=== PATIENT | female | born 1985 | race Caucasian/White ===

== ENCOUNTER 2016-10-25 02:49 | Inpatient (IN) | payer OTHER ==
[2016-10-25] MEDS ORDERED: SODIUM CHLORIDE FLUSH 0.9% 10 ML SYRINGE IVP ONE (03:00)
[2016-10-25] MEDS ORDERED: ONDANSETRON 4 MG/2 ML VIAL IVP PRN (03:18)
[2016-10-25] MEDS ORDERED: PENICILLIN G POTASSIUM 5,000,000 UNIT in SODIUM CHLORIDE 0.9% MINIBAG 100 ML IV ONE (03:18)
[2016-10-25] MEDS ORDERED: fentaNYL 100 MCG/2 ML VIAL IVP PRN (03:18)
[2016-10-25] MEDS: SODIUM CHLORIDE FLUSH 0.9% 10 ML SYRINGE IVP PRN ×3 (03:23→10:28)
[2016-10-25] MEDS ORDERED: OXYTOCIN/LACTATED RINGERS 250 ML IV SCH (04:00)
[2016-10-25] MEDS ORDERED: LACTATED RINGERS 1,000 ML IV SCH ×3 (04:00→06:00)
[2016-10-25] MEDS ORDERED: PENICILLIN G POTASSIUM 5,000,000 UNIT in SODIUM CHLORIDE 0.9% MINIBAG 100 ML IV SCH (04:08)
[2016-10-25] MEDS ORDERED: LIDOCAINE 1% 50 ML MDV ONE (04:24)
[2016-10-25] MEDS ORDERED: LIDOCAINE JELLY 2% 5 ML TUBE TOP ONE (04:44)
[2016-10-25] MEDS ORDERED: OXYTOCIN/LACTATED RINGERS 250 ML IV ONE ×2 (05:24→05:46)
[2016-10-25] MEDS ORDERED: WITCH HAZEL/GLYCERIN 1 EACH MED..PAD TOP PRN ×2 (05:24→05:46)
[2016-10-25] MEDS ORDERED: HYDROcod/ACETAM 5/325 MG TABLET PO PRN ×2 (05:24→05:46)
[2016-10-25] MEDS ORDERED: HYDROCORTISONE/PRAMOXINE 10 GM PR PRN ×2 (05:24→05:46)
[2016-10-25] MEDS ORDERED: diphenhydrAMINE 25 MG CAPSULE PO PRN (05:24)
[2016-10-25] MEDS ORDERED: RHO(D) IMMUNE GLOBULIN 300 MCG SYRINGE IM SCH (05:46)
[2016-10-25] MEDS ORDERED: SODIUM CHLORIDE FLUSH 0.9% 10 ML SYRINGE IVP SCH (06:00)
[2016-10-25] MEDS ORDERED: IBUPROFEN 800 MG TABLET PO SCH (06:00)
[2016-10-25] MEDS: IBUPROFEN 600 MG TABLET PO SCH ×3 (06:41→18:46)
[2016-10-25] MEDS ORDERED: PENICILLIN G POTASSIUM 2,500,000 UNIT in SODIUM CHLORIDE 0.9% 100ML 100 ML IV SCH (08:00)
[2016-10-25] MEDS: DOCUSATE SODIUM 100 MG CAPSULE PO SCH ×2 (12:31→22:30)
[2016-10-26] MEDS: IBUPROFEN 600 MG TABLET PO SCH ×4 (00:53→18:32)
[2016-10-26] MEDS ORDERED: RHO(D) IMMUNE GLOBULIN 300 MCG SYRINGE IM SCH (10:00)
[2016-10-26] MEDS: DOCUSATE SODIUM 100 MG CAPSULE PO SCH (12:51)
== END 2016-10-26 19:00 | disposition home or self-care (01) | DRG 775 ==
PROC: 0KQM0ZZ Repair Perineum Muscle, Open Approach (ICD-10-PCS; principal; 2016-10-25)
PROC: 10D07Z6 Extraction of Products of Conception, Vacuum, Via Natural or Artificial Opening (ICD-10-PCS; 2016-10-25)
DX: O70.1 Second degree perineal laceration during delivery (principal); Z37.0 Single live birth; Z3A.40 40 weeks gestation of pregnancy; Z87.820 Personal history of traumatic brain injury; Z95.818 Presence of other cardiac implants and grafts; O99.824 Streptococcus B carrier state complicating childbirth

== ENCOUNTER 2017-04-06 01:09 | Emergency (ER) | payer OTHER ==
[2017-04-06 01:28] LABS: BILIRUBIN,URINE NEGATIVE (NEGATIVE); PH,URINE 6.5 PH (5.0-7.5)
[2017-04-06 01:40] LABS: HCG UR QUAL NEGATIVE; UA w/ MICROSCOPIC CHARGE YES; UR CULTURE IF IND INDICATED
[2017-04-06] MEDS ORDERED: PHENAZOPYRIDINE 100 MG TABLET PO STA (01:48)
[2017-04-06] MEDS ORDERED: NITROFURANTOIN MACRO 100 MG CAPSULE PO STA (01:48)
--- NOTE | 2017-04-06 01:52 | ED Physician Documentation ---
PD HPI FEMALE - Stated complaint Stated Complaint: FEMALE - Chief complaint Chief Complaint: UTI - History obtained from History obtained from: Patient - History of Present Illness Timing - onset: Yesterday Timing - details: Gradual onset, Still present Associated symptoms: Pelvic pain, Dysuria, Urinary frequency, Hematuria Similar symptoms before: Work up / diagnostics Recently seen: Not recently seen - Additional information Additional information: Patient is a 32 year old female who is presenting to the emergency department for dysuria, hematuria and not feeling well. patient states that the symptoms started yesterday and have become progressively worse. Review of Systems Constitutional: reports: Fever. denies: Chills Eyes: denies: Loss of vision, Photophobia Ears: denies: Ear pain, Drainage/discharge Nose: denies: Rhinorrhea / runny nose, Congestion Throat: denies: Dental pain / toothache, Sore throat Cardiac: denies: Chest pain / pressure, Palpitations Respiratory: denies: Cough GI: denies: Abdominal Pain, Nausea, Vomiting : reports: Dysuria, Frequency, Hematuria Skin: denies: Rash, Lesions Musculoskeletal: reports: Back pain. denies: Neck pain, Extremity pain Neurologic: denies: Generalized weakness, Focal weakness, Numbness Immunocompromised: denies: Immunocompromised PD PAST MEDICAL HISTORY - Past Medical History Past Medical History: No - Past Surgical History Past Surgical History: Yes HEENT: Tonsil/Adenoidectomy - Present Medications Home Medications: Ambulatory Orders Medication Instructions Recorded Confirmed Nitrofurantoin Monohyd/M-Cryst 100 mg PO BID 5 Days 04/06/17 [Macrobid 100 mg Capsule] Phenazopyridine HCl [Pyridium] 200 mg PO TID PRN #6 tablet 04/06/17 Pnv95/Ferrous Fumarate/FA 1 each PO DAILY 04/06/17 04/06/17 [ Formula] - Allergies Allergies/Adverse Reactions: Allergies Allergy/AdvReac Type Severity Reaction Status Date / Time General Anesthia Allergy Unknown Uncoded 04/06/17 01:22 - Social History Does the pt smoke?: No Smoking Status: Never smoker Does the pt drink ETOH?: Yes ETOH Use: Wine Does the pt have substance abuse?: No - Immunizations Immunizations are current?: Yes - POLST Patient has POLST: No PD ED PE NORMAL - Vitals Vital signs reviewed: Yes - General General: Alert and oriented X 3, Well developed/nourished - HEENT HEENT: Atraumatic, PERRL - Neck Neck: Supple, no meningeal sign, No JVD - Cardiac Cardiac: RRR, No murmur - Respiratory Respiratory: No respiratory distress, Clear bilaterally - Abdomen Abdomen: Non distended - Back Back: No CVA TTP - Derm Derm: Normal color, Warm and dry, No rash - Extremities Extremities: No deformity, No edema - Neuro Neuro: Alert and oriented X 3, No motor deficit, No sensory deficit, Normal speech - Psych Psych: Normal mood, Normal affect PD ED PE EXPANDED - Abdomen Abdomen: Tender to palpation, Suprapubic Results - Vitals Vitals: Vital Signs - 24 hr 04/06/17 01:15 Temperature 36.6 C Heart Rate 70 Respiratory 17 Rate Blood Pressure 119/87 H O2 Saturation 99 Oxygen O2 Source Room air - Labs Labs: Laboratory Tests 04/06/17 01:22 Urine Color LT RED Urine Clarity BLOODY Urine pH 6.5 Ur Specific [place] 1.020 Urine Protein 30 H Urine Glucose (UA) NEGATIVE Urine Ketones NEGATIVE Urine Occult Blood LARGE H Urine Nitrite NEGATIVE Urine Bilirubin NEGATIVE Urine Urobilinogen 0.2 (NORMAL) Ur Leukocyte Esterase MODERATE H Urine RBC TNTC H Urine WBC 4-5 Ur Epithelial Cells RARE Renal Tubular Ur Squamous Epith Cells RARE Squamous Urine Bacteria None Seen Ur Microscopic Review INDICATED Urine Culture Comments INDICATED Urine HCG, Qual NEGATIVE PD MEDICAL DECISION MAKING - ED course Complexity details: reviewed old records, reviewed results, re-evaluated patient , considered differential, d/w patient ED course: Patient was seen and examined at bedside. Urine was collected and sent. Patient was found to have cystitis. Patient was treated with macrobid and pyridium. patient required no further work up and was stable for discharge with outpatient follow up. Departure - Departure Disposition: 01 Home, Self Care Clinical Impression: Cystitis Condition: Good Instructions: ED UTI Cystitis Female Follow-Up: primary,care provider [Other] - As Needed Prescriptions: Nitrofurantoin Monohyd/M-Cryst [Macrobid 100 mg Capsule] 100 mg PO BID 5 Days Phenazopyridine HCl [Pyridium] 200 mg PO TID PRN #6 tablet PRN Reason: dysuria Comments: Your symptoms today are being caused by a urinary tract infection. You will have your first dose of antibiotics tonight and will need to take them for the next five days. You can take motrin or tylenol as needed for pain. You should drink plenty of water. You should follow up with your symptoms persist. You may return to the emergency department at any time for new, worsening or uncontrollable symptoms.
[2017-04-06] MEDS ORDERED: PHENAZOPYRIDINE 100 MG TABLET PO ONE (01:57)
[2017-04-06] MEDS ORDERED: NITROFURANTOIN MACRO 100 MG CAPSULE PO ONE (01:57)
[2017-04-06 02:00] VITALS: BP 118/68
== END 2017-04-06 02:00 | disposition home or self-care (01) ==
LOC: ED 01:09
DX: N30.01 Acute cystitis with hematuria (principal)
CPT/HCPCS: 81001; 81025; 87077; 87086; 87181; 99283; A9270; 81003

== ENCOUNTER 2017-10-22 20:41 | Emergency (ER) | payer OTHER ==
[2017-10-22 21:04] LABS: BILIRUBIN,URINE NEGATIVE (NEGATIVE); GLUCOSE, URINE (UA) NEGATIVE (NEGATIVE); KETONES,URINE (UA) 15 mg/dL (NEGATIVE); LEUKOCYTE ESTERASE, URINE NEGATIVE (NEGATIVE); NITRITE,URINE NEGATIVE (NEGATIVE); OCCULT BLOOD,URINE NEGATIVE (NEGATIVE); PH,URINE 5.5 PH (5.0-7.5); PROTEIN,URINE NEGATIVE (NEGATIVE); UROBILINOGEN,URINE 0.2 (NORMAL) E.U./dL (NORMAL)
[2017-10-22 21:06] LABS: CLARITY,URINE CLEAR (CLEAR); HCG UR QUAL POSITIVE
--- NOTE | 2017-10-22 21:07 | ED Physician Documentation ---
PD HPI NVD - Stated complaint Stated Complaint: VOMTING/8WKS PREG - Chief complaint Chief Complaint: Abd Pain - History obtained from History obtained from: Patient - History of Present Illness Timing - onset: Enter time (20:00), Today Timing - details: Abrupt onset Pain level max: 8 Pain level now: 0 Associated symptoms: Abdominal pain. No: Fever, Hematemesis, Hematuria, Vaginal bleeding, Vaginal dc Improved by: Other (no ameliorating factors) Worsened by: Eating Similar symptoms before: Has not had sx before Recently seen: Not recently seen - Additonal information Additional information: patient is approximately 8 weeks . she has not had an US in this . This is her second , no problems with first . Presents due to 24 hours of nausea, vomiting, diarrhea, and cramping across her pelvis and lower abdomen. symptoms have gradually progressed and she can no longer keep anything down including liquids. She denies nausea or pain at the time of HPI; she says she will suddenly become nauseas and then vomit and have cramping pain but is well between these waves Review of Systems Constitutional: denies: Fever, Chills, Sweats Cardiac: reports: Reviewed and negative Respiratory: reports: Reviewed and negative GI: reports: Nausea, Vomiting, Diarrhea. denies: Abdominal Pain, Abdominal Swelling, Hematemesis, Bloody / black stool : denies: Dysuria, Frequency Musculoskeletal: denies: Back pain PD PAST MEDICAL HISTORY - Past Medical History Past Medical History: No - Past Surgical History Past Surgical History: Yes HEENT: Tonsil/Adenoidectomy - Present Medications Home Medications: Ambulatory Orders Medication Instructions Recorded Confirmed Pnv95/Ferrous Fumarate/FA 1 each PO DAILY 04/06/17 10/22/17 [ Formula] - Allergies Allergies/Adverse Reactions: Allergies Allergy/AdvReac Type Severity Reaction Status Date / Time General Anesthia Allergy Unknown Uncoded 10/22/17 20:53 - Social History Does the pt smoke?: No Smoking Status: Never smoker Does the pt drink ETOH?: No Does the pt have substance abuse?: No - Immunizations Immunizations are current?: Yes - POLST Patient has POLST: No PD ED PE NORMAL - Vitals Vital signs reviewed: Yes - General General: Alert and oriented X 3, No acute distress, Well developed/nourished - HEENT HEENT: Other (tacky/pasty mucous [place]) - Neck Neck: Supple, no meningeal sign - Cardiac Cardiac: RRR, No murmur - Respiratory Respiratory: No respiratory distress, Clear bilaterally - Abdomen Abdomen: Soft, Non tender, Non distended, Other (mild tenderness to palpation across lower abdomen and anterior pelvis, L>R. no rebound or guarding) - Back Back: No CVA TTP - Derm Derm: Normal color, Warm and dry Results - Vitals Vitals: Vital Signs - 24 hr 10/22/17 10/23/17 20:48 00:16 Temperature 36.7 C Heart Rate 85 78 Respiratory 16 16 Rate Blood Pressure 119/72 110/75 O2 Saturation 100 99 Oxygen O2 Source Ambu bag - Labs Labs: Laboratory Tests 10/22/17 10/22/17 10/22/17 21:01 21:30 21:30 WBC 6.8 RBC 4.77 Hgb 12.3 Hct 38.1 MCV 80.0 L MCH 25.7 L MCHC 32.1 RDW 15.0 Plt Count 281 MPV 8.4 Neut # 5.6 Lymph # 0.8 L [place] # 0.4 Eos # 0.0 Baso # 0.0 Absolute Nucleated RBC 0.00 Nucleated RBC % 0.0 Sodium 134 L Potassium 3.6 Chloride 105 Carbon Dioxide 21 Anion Gap 8.0 BUN 7 Creatinine 0.7 Estimated GFR (MDRD) 98 Glucose 89 Calcium 8.8 Total Bilirubin 0.2 AST 26 ALT 15 Alkaline Phosphatase 59 Total Protein 6.9 Albumin 4.1 Globulin 2.8 Albumin/Globulin Ratio 1.5 Lipase 11 L HCG, Quant Urine Color YELLOW Urine Clarity CLEAR Urine pH 5.5 Ur Specific [place] 1.015 Urine Protein NEGATIVE Urine Glucose (UA) NEGATIVE Urine Ketones 15 H Urine Occult Blood NEGATIVE Urine Nitrite NEGATIVE Urine Bilirubin NEGATIVE Urine Urobilinogen 0.2 (NORMAL) Ur Leukocyte Esterase NEGATIVE Ur Microscopic Review NOT INDICATED Urine Culture Comments NOT INDICATED Urine HCG, Qual POSITIVE 10/22/17 21:30 WBC RBC Hgb Hct MCV MCH MCHC RDW Plt Count MPV Neut # Lymph # [place] # Eos # Baso # Absolute Nucleated RBC Nucleated RBC % Sodium Potassium Chloride Carbon Dioxide Anion Gap BUN Creatinine Estimated GFR (MDRD) Glucose Calcium Total Bilirubin AST ALT Alkaline Phosphatase Total Protein Albumin Globulin Albumin/Globulin Ratio Lipase HCG, Quant 567293.00 Urine Color Urine Clarity Urine pH Ur Specific [place] Urine Protein Urine Glucose (UA) Urine Ketones Urine Occult Blood Urine Nitrite Urine Bilirubin Urine Urobilinogen Ur Leukocyte Esterase Ur Microscopic Review Urine Culture Comments Urine HCG, Qual - Rads (name of study) pelvic/TV US Radiology: Prelim report reviewed, See rad report PD MEDICAL DECISION MAKING - ED course Complexity details: reviewed results, re-evaluated patient, considered differential, d/w patient Departure - Departure Disposition: 01 Home, Self Care Clinical Impression: Threatened , Abdominal pain Condition: Good Instructions: ED Abdominal Pain Unkn Cause, ED Miscarriage Poss Follow-Up: KIRSTEN Talbert [Provider Group] Discharge Date/Time: 10/23/17 00:17
[2017-10-22] MEDS ORDERED: SODIUM CHLORIDE 0.9% 1,000 ML IV STA (21:25)
[2017-10-22 21:40] LABS: BASOPHILS % (AUTO) 0.4 %; EOSINOPHILS % (AUTO) 0.3 %; HGB - HEMOGLOBIN 12.3 g/dL (12.0-16.0); LYMPHOCYTES # (AUTO) 0.8 10^3/uL (1.5-3.5); LYMPHOCYTES % (AUTO) 11.4 %; MEAN CORPUSCULAR HEMOGLOBIN 25.7 pg (27.0-31.0); MEAN CORPUSCULAR HGB CONC 32.1 g/dL (32.0-36.0); MEAN PLATELET VOLUME 8.4 fL (7.9-10.8); MONOCYTES # (AUTO) 0.4 10^3/uL (0.0-1.0); MONOCYTES % (AUTO) 6.2 %; NEUTROPHILS # (AUTO) 5.6 10^3/uL (1.5-6.6); NEUTROPHILS % (AUTO) 81.7 %; PLT - PLATELET COUNT 281 10^3/uL (130-450); RED BLOOD COUNT 4.77 10^6/uL (4.20-5.40); WHITE BLOOD COUNT 6.8 x10^3/uL (4.8-10.8)
[2017-10-22 21:48] LABS: ALBUMIN 4.1 g/dL (3.2-5.5); ALBUMIN/GLOBULIN RATIO 1.5 (1.0-2.2); BILIRUBIN,TOTAL 0.2 mg/dL (0.2-1.0); CALCIUM 8.8 mg/dL (8.5-10.3); CREATININE 0.7 mg/dL (0.4-1.0); TOTAL PROTEIN 6.9 g/dL (6.7-8.2)
--- NOTE | 2017-10-22 23:17 | Ultrasound Report ---
EXAM: FIRST TRIMESTER OBSTETRIC ULTRASOUND (Less than 11 weeks) EXAM DATE: 10/22/2017 10:54 PM. CLINICAL HISTORY: , pelvic pain. LMP: 08/26/2017. COMPARISONS: None. TECHNIQUE: Transabdominal and transvaginal ultrasound examination with static image documentation. CLINICAL DATES: EGA 8 weeks 1 day with JOSELUIS 06/02/2018 based on LMP. ASSESSMENT: Gestational Sac: Single intrauterine. Mean gestational sac diameter: 29 mm = 8 weeks 0 days. Embryo: CRL (crown-rump length) 13 mm = 7 weeks 4 days. Cardiac activity: 193 beats per minute. Yolk sac: 4 mm. Amniotic fluid: Not accurately assessed at this gestational age. Early placenta: Not visible at this gestational age. Other: Collection adjacent to the gestational sac measuring 13 x 22 mm. MATERNAL STRUCTURES: Uterus: Neutral position. Unremarkable. Cervix: Closed. Right Ovary/Adnexa: Is luteum measuring 2.3 x 1.9 x 2.0 cm. The ovary measures 3.4 x 2.7 x 3.3 cm, v olume 16 cc. Left Ovary/Adnexa: Unremarkable. The ovary measures 2.9 x 1.3 x 2.5 cm, volume 4.8 cc. Free Fluid: None. Other: None. IMPRESSION: 1. Single viable intrauterine at EGA 7 weeks 4 days with JOSELUIS 06/06/2018 based on crown-rump length, which is concordant with clinical dates. 2. Assigned dating is JOSELUIS 06/02/2018 based on LMP. 3. Probable hemorrhage adjacent to the sac measuring 13 x 22 mm. [facility] Referring Provider Line: [phone] SITE ID: [id number]
--- NOTE | 2017-10-22 23:17 | Ultrasound Preliminary Report ---
Exam: US OB FIRST TRIMESTER IMPRESSION: 1. Single viable intrauterine at EGA 7 weeks 4 days with JOSELUIS 06/06/2018 based on crown-rump length, which is concordant with clinical dates. 2. Assigned dating is JOSELUIS 06/02/2018 based on LMP. 3. Probable hemorrhage adjacent to the sac measuring 13 x 22 mm. [facility] SITE ID: [id number]
[2017-10-22] MEDS ORDERED: ACETAMINOPHEN 325 MG TABLET PO STA (23:41)
[2017-10-23 00:17] VITALS: BP 110/75
== END 2017-10-23 00:17 | disposition home or self-care (01) ==
LOC: ED 20:41
DX: O20.0 Threatened abortion (principal); Z3A.08 8 weeks gestation of pregnancy
CPT/HCPCS: 76801; 76817; 80053; 81003; 81025; 83690; 84702; 85025; 96360; 99283; A9270; 36415; 81001; 87086

== ENCOUNTER 2018-06-05 12:00 | Inpatient (IN) | payer OTHER ==
[2018-06-05] MEDS ORDERED: OXYTOCIN 10 UNIT/ML VIAL IM ONE (12:15)
[2018-06-05] MEDS ORDERED: LIDOCAINE 1% 50 ML MDV TD ONE (12:15)
[2018-06-05] MEDS ORDERED: OXYTOCIN/SODIUM CHLORIDE 250 ML IV ONE (12:37)
[2018-06-05] MEDS ORDERED: WITCH HAZEL/GLYCERIN 1 EACH MED..PAD TOP PRN (12:37)
--- NOTE | 2018-06-05 12:58 | DELIVERY NOTE ---
Delivery Note - Labor Labor: positive: Spontaneous - Delivery Method Delivery Method: positive: Spontaneous vaginal delivery - Presentation Presentation: positive: Vertex, JAMES - right occiput anterior - Nuchal Cord Nuchal Cord: positive: None - Anesthetic Anesthetic: positive: Lidocaine - 1% plain - Amniotic Fluid Description Amniotic Fluid Description: positive: Clear - Episiotomy Type Episiotomy Type: positive: None - Laceration Laceration: positive: 1st degree - Suture Suture Type: positive: Vicryl Suture Size: positive: 3-0 - Delivery Outcome Delivery Outcome: positive: Livebirth - : positive: Placed in direct skin contact with mother, Stimulated, Warme d, Bledsoe used [place] sex: positive: Female - Cord Cord: positive: 3 vessels - Placenta Placenta: positive: Intact, Spontaneous - Estimated Blood Loss Estimated Blood Loss (in cc): 250 - Post Delivery Events Post Delivery Events: positive: No post delivery events - Delivery Comments (Free Text/Narrative) Delivery Comments (Free Text/Narrative): This 33yo @ 40.3 wks gestation whom is a patient at the [facility] who presented on 06/05/2018 at 1200 in active labor with visible head on perineum and spontaneous urge to push. FHR auscultation in 140s. Precipitous labor course. Per patient intermittent, moderate uterine contractions began 12 hours ago and occurred q 20 minutes. SROM occurred at 1130 on 06/05/2018 and was noted to be a moderate amount of clear fluid followed by rapid increase in frequency, duration, and intensity of uterine contractions. Patient presented to [facility] at 1200 and was transferred via wheelchair to [facility] at 1202. Normal of a viable female on 06/05/2018 at 1204 in JAMES position. No nuchal cord. 's were 9/9 at 1 and 5 min respectively. The was placed on maternal abdomen, stimulated, dried, and placed skin to skin. The umbilical cord was allowed to stop pulsating at which time it was doubly clamped by CNM and cut by FOB. Cord blood was obtained. Placenta delivered spontaneously and intact at 1209. 3VC. Pitocin administered via IM for hemostasis. EBL 250mL. Fourth Stage: Uterine fundus firm and there is no excessive bleeding. The perineum, vagina, and cervix were inspected and found to have first degree perineal laceration which was repaired using a 3-[address]-1 needle in standard fashion under sterile conditions. Vaginal examination following repair was completed and tissues well approximated. initiated. Family bonding well. Both mother and baby were left in stable condition.
[2018-06-05 13:09] LABS: BASOPHILS % (AUTO) 0.1 %; EOSINOPHILS % (AUTO) 0.1 %; HGB - HEMOGLOBIN 10.5 g/dL (12.0-16.0); LYMPHOCYTES # (AUTO) 0.9 10^3/uL (1.5-3.5); LYMPHOCYTES % (AUTO) 5.8 %; MEAN CORPUSCULAR HEMOGLOBIN 26.1 pg (27.0-31.0); MEAN CORPUSCULAR HGB CONC 33.4 g/dL (32.0-36.0); MEAN PLATELET VOLUME 8.7 fL (7.9-10.8); MONOCYTES # (AUTO) 0.4 10^3/uL (0.0-1.0); MONOCYTES % (AUTO) 2.4 %; NEUTROPHILS # (AUTO) 14.1 10^3/uL (1.5-6.6); NEUTROPHILS % (AUTO) 91.6 %; PLT - PLATELET COUNT 339 10^3/uL (130-450); RED BLOOD COUNT 4.04 10^6/uL (4.20-5.40); RED CELL DISTRIBUTION WIDTH 13.6 % (12.0-15.0); WHITE BLOOD COUNT 15.4 x10^3/uL (4.8-10.8)
[2018-06-05] MEDS: ACETAMINOPHEN 500 MG TABLET PO SCH ×2 (13:34→21:40)
[2018-06-05] MEDS: IBUPROFEN 800 MG TABLET PO SCH ×2 (13:34→20:03)
--- NOTE | 2018-06-05 18:02 | HISTORY & PHYSICAL EXAMINATION ---
Admit History - Visit Reason Visit Reason: Contractions, Membranes rupture - : 2 Parity: 1 Premature: 0 Ectopic: 0 : 0 Care: positive: George Risk/History: positive: None Complications This : positive: None Smoking Status: Never smoker - Mother's Labs Mother's Blood Type: positive: O Mother's RH: positive: Negative GBS: positive: Group B Strep Positive Rubella Status: positive: Immune Meds/Allgy - Home Medications Home Medications: Ambulatory Orders Medication Instructions Recorded Confirmed Pnv95/Ferrous Fumarate/FA 1 each PO DAILY 04/06/17 10/22/17 [ Formula] - Allergies Allergies/Adverse Reactions: Allergies Allergy/AdvReac Type Severity Reaction Status Date / Time blueberries Allergy Hives Uncoded 06/05/18 14:52 dogs cats Allergy Itching Uncoded 06/05/18 14:53 General Anesthia Allergy Unknown Uncoded 10/22/17 20:53 pineapple Allergy Hives Uncoded 06/05/18 14:53 Review of Systems - Constitutional Constitutional: denies: Fever, Chills - Eyes Eyes: denies: Blurred vision, Vision loss, Dipolpia - Cardiovascular Cariovascular: denies: Irregular heart rate, Palpitations, Chest pain - Gastrointestinal Gastrointestinal: denies: Abdominal pain, Constipation, Diarrhea - Genitourinary Genitourinary: denies: Dysuria, Frequency, Urgency - Hematologic/Lymphatic Hematologic/Lymphatic: reports: Anemia Physical - Abdominal Exam Vital Signs: Temp Pulse Resp BP Pulse Ox 36.7 C 72 18 117/99 H 99 06/05/18 16:48 06/05/18 16:48 06/05/18 16:48 06/05/18 16:48 06/05/18 16:48 Contraction Intensity: positive: Strong Uterine Resting Tone: positive: Soft - Monitoring Heart Rate Baseline: 140s Strip Review: positive: Category I - Presentation Presentation: positive: Vertex - Vaginal Exam Membranes: positive: Membranes ruptured Dilation (in cm): 10 Effacement (%): 100 Station: positive: - Speculum Exam Speculum Exam Performed: positive: No Plan for Labor - Plan For Labor I expect patient to be DC'd or transferred within 96 hours.: Yes Plan for Labor: HPI: 33yo @ 40.3wks gestation [facility] with frequent and intense uterine contractions and spontaneous urge to push. She reports SROM a moderate amount of clear fluid at 1130 on 06/05/2018. She is a patient of KIRSTEN Elizabeth who presented to [facility] secondary to [facility] divert status. Dating criteria: LMP 08/26/2017 = JOSELUIS 06/02/2018 PMHx: Kidney stone 2010 Migraines 2016 Abnormal pap 2016 - LEEP 2015; pap reverted to normal Ovarian cysts 2006 Neurocardiogenic syncope - had workup. Loop monitor implant [id number]. Could not find cause. Has not had any since third trimester of first late 2017/early 2016 Obstetric Hx: G1: 10/25/2016 vaginal delivery at 40 weeks. 4 hour labor. 3515g G2: Current Surgical Hx: LEEP 2016 Cardiac loop monitor implant 2010-removal 2013 Arthroscopy of knee 2007 Tonsillectomy 1992 Allergies: Dust; dogs; cats; pineapple; blueberry ANESTHETIC - reaction vomiting. Medications: Ferrous sulfate 324mg; PNV Social Hx: Never smoker. No ETOH or IVDA. 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 Family Hx: GENETIC FAMILY HX of cystic fibrosis - Mother of baby's paternal aunt HTN- MGM Cancer- PGM labs: Blood type: O neg - Rhogam received 03/22/18 Antibody negative GC/CT neg Hgb 12.6; Hct 38.4; PLT 303 Varicella immune Rubella immune RPR non-reactive HIV non-reactive Hep B neg Hep C neg 28 week labs: 1 hour GTT 104 Hgb 11.4; Hct 34.5; PLT 291 Antibody High risk HPV neg; Type 16 & 18 neg Genetic testing: Serum integrated screen - neg GBS POSITIVE Immunizations: Rhogam 03/22/18 Tdap 05/02/18 Physical Exam: Heart RRR w/o M/G/R Lungs CTAB Abdomen gravid, soft, nontender with soft resting tone Contractions palpate firm SVE deferred secondary to Breathing heavily through contractions. Assessment: 33yo @ 40.3wks gestation Active labor Precipitous labor GBS positive Rh negative Plan: Admit for expectant management Anticipate spontaneous vaginal delivery
[2018-06-05] MEDS: DOCUSATE SODIUM 100 MG CAPSULE PO SCH (21:26)
[2018-06-06] MEDS: IBUPROFEN 800 MG TABLET PO SCH ×2 (03:46→09:34)
[2018-06-06] MEDS: ACETAMINOPHEN 500 MG TABLET PO SCH (05:32)
--- NOTE | 2018-06-06 08:57 | PROVIDER PROGRESS NOTE ---
Subjective - Subjective Subjective: S: Bonding well with baby. without difficulty. Pain well controlled with ibuprofen and Tylenol. Bleeding decreased and is light. Perineum comfortable and denies pain or difficulty with urination. Mood is good. supportive at the bedside. O: BP 121/73, HR 71, RR 16, T 37.0 Heart RRR w/o M/G/R, lungs CTAB, abdomen soft and nontender with fundus firm at U-3. Perineum comfortable and repair without edema. Light lochia rubra. Bilateral LE's no edema. Mood is good. A: 33yo -->P2 s/p TSVD of viable female infant First degree perineal laceration -intact GBS positive -untreated P: Reviewed self care and warning s/sx. Advised continuation of PNV while Advised continuation of OTC ibuprofen and tylenol for pain management. She plans to f/u with [facility] at 3 weeks pp for routine care. present and supportive at the bedside. Both pt and her verbalized understanding and agree to the above plan. They deny further questions or concerns at this time. Objective - Vital Signs/Intake & Output Vital Signs: Vital Signs x48h Temp Pulse Resp BP Pulse Ox 06/06/18 08:10 37 C 71 16 121/73 06/06/18 03:54 36.5 C 67 18 109/70 95 Intake & Output: Intake & Output 06/04/18 06/04/18 06/05/18 06/06/18 00:59 23:59 23:59 23:59 Output Total 600 Balance -600 - Lab Results Fish Bones: 06/05/18 12:59 Other Labs: Lab Results x24hrs 06/05/18 Range/Units 12:59 WBC 15.4 H (4.8-10.8) x10^3/uL RBC 4.04 L (4.20-5.40) 10^6/uL Hgb 10.5 L (12.0-16.0) g/dL Hct 31.5 L (37.0-47.0) % MCV 78.0 L (81.0-99.0) fL MCH 26.1 L (27.0-31.0) pg MCHC 33.4 (32.0-36.0) g/dL RDW 13.6 (12.0-15.0) % Plt Count 339 (130-450) 10^3/uL MPV 8.7 (7.9-10.8) fL Neut # (Auto) 14.1 H (1.5-6.6) 10^3/uL Lymph # (Auto) 0.9 L (1.5-3.5) 10^3/uL [place] # (Auto) 0.4 (0.0-1.0) 10^3/uL Eos # (Auto) 0.0 (0.0-0.7) 10^3/uL Baso # (Auto) 0.0 (0.0-0.1) 10^3/uL Absolute Nucleated RBC 0.00 x10^3/uL Nucleated RBC % 0.0 /100WBC
--- NOTE | 2018-06-06 08:57 | Discharge Plan ---
Discharge Plan Disposition: 01 Home, Self Care Condition: Good Diet: Regular Activity Restrictions: No Restrictions Shower Restrictions: No Driving Restrictions: No Weight Bearing: Full Weight No Smoking: If you smoke, Please STOP! Call for help.
[2018-06-06] MEDS: DOCUSATE SODIUM 100 MG CAPSULE PO SCH (09:32)
--- NOTE | 2018-06-06 12:09 | DISCHARGE SUMMARY ---
Physician: YENY Aparicio DATE OF ADMISSION: 06/05/2018 DATE OF DISCHARGE: 06/06/2018 DIAGNOSES ON ADMISSION 1. A 33-year-old G2, P1-0-0-1 at 40.3 weeks' gestation. 2. Precipitous delivery. 3. GBS positive, untreated. 4. Rh negative. DIAGNOSES ON DISCHARGE 1. A 33-year-old G2, P2-0-0-2, status post term spontaneous vaginal delivery on 06/05/2018. 2. Normal recovery. 3. First-degree perineal laceration intact. BRIEF HISTORY: This is a patient of the [facility] who presents to [facility] divert status in spontaneous active labor with spontaneous urge to push . Upon her arrival head visible on perineum. Precipitous labor course. The patient spontaneo usly delivered a viable female infant on 06/05/2018 at 1204 hours in JAMES position. Apgars were 9 and 9 at 1 and 5 minutes respectively. The had vigorous cry at delivery. The perineum, vagina and cervix were inspected and found to have a first-degree perineal laceration, which was repaired us ing a 3-0 Vicryl on a CT1 needle in standard fashion under usual sterile conditions. ESTIMATED BLOOD LOSS: 250 mL She has been doing well on her course. She is ambulating and tolerating a regular diet. She is without difficulty and her lochia is normal. She has been given precautions to call if she has any worsening fevers, chills, abdominal pain, increase in vaginal bleeding or foul sm elling vaginal lochia. She intends to followup at the [facility] in 3 weeks for routine c are. present and supportive at bedside for discharge teaching. Both the patient and her hus band agreed to the above plan and denied further questions or concerns at this time. The patient is Rh negative and baby girl Rh negative as well, so RhoGAM administration was deferred per protocol. TD: 06/06/2018 09:09
[2018-06-06 13:03] VITALS: BP 118/76
--- NOTE | 2018-06-06 13:30 | Labor Flowsheet ---
Labor Flowsheet Datetime Report Generated by CPN: 06/06/2018 13:30 Datetime: 06/06/2018 12:37 VITAL SIGNS NBP Sys/Adriana/Mean (mmHg): 118 : 76 : 85 Pulse: 69 Datetime: 06/06/2018 03:49 SpO2 (%): 95
== END 2018-06-06 12:40 | disposition home or self-care (01) | DRG 807 ==
LOC: WFO 12:00 → FBP 12:02
PROVIDERS: ADMIT Nurse Practitioner Obstetrics & Gynecology; ATTEND Nurse Practitioner Obstetrics & Gynecology
PROC: 10E0XZZ Delivery of Products of Conception, External Approach (ICD-10-PCS; principal; 2018-06-05)
PROC: 0HQ9XZZ Repair Perineum Skin, External Approach (ICD-10-PCS; 2018-06-05)
DX: O62.3 Precipitate labor (principal); Z37.0 Single live birth; O99.824 Streptococcus B carrier state complicating childbirth; Z3A.40 40 weeks gestation of pregnancy; O26.893 Other specified pregnancy related conditions, third trimester; Z67.41 Type O blood, Rh negative; O70.0 First degree perineal laceration during delivery
CPT/HCPCS: 36415; 85025